=== PATIENT | male | born 1985 | race Caucasian/White ===

== ENCOUNTER 2021-10-25 11:16 | Observation (INO) | payer OTHER ==
[2021-10-25 11:23] VITALS: TEMP 98
[2021-10-25] MEDS ORDERED: SODIUM CHLORIDE 0.9% 500 ML 500 ML IV STA (11:39)
[2021-10-25] MEDS ORDERED: NITROGLYCERIN SL TABS 0.4 MG TAB SUBLINGUAL STA ×2 (11:39)
[2021-10-25] MEDS ORDERED: ASPIRIN 81 MG PO STA (11:39)
--- NOTE | 2021-10-25 11:43 | ED ---
General Adult HPI - General Chief complaint: Chest Pain Stated complaint: Chest Pain Time Seen by Provider: 10/25/21 11:20 Source: patient, RN notes reviewed, old records reviewed Mode of arrival: ambulatory Limitations: no limitations - History of Present Illness Initial comments: This is a 36-year-old male who presents to the emergency department complaining of chest pain that started last evening. Patient states constant since last evening. Patient denies any radiation of the pain. Patient states he is somewhat short of breath. Patient states this is been an ongoing thing for the last few weeks where he is getting chest pain. Patient is has a history of high blood pressure was taken hydrochlorothiazide he states he hasn't missed any dose s. Patient denies any diaphoretic episodes. Patient denies any nausea. Patient denies abdominal pain patient denies nausea vomiting diarrhea. Patient denies any lightheadedness dizziness. Patient was told he needed to be admitted to another hospital but he left AGAINST MEDICAL ADVICE. - Related Data Home Medications Medication Instructions Recorded Confirmed Ibuprofen [Motrin] 800 mg PO Q8H PRN 10/25/21 10/25/21 Omeprazole [PriLOSEC] 10 mg PO DAILY 10/25/21 10/25/21 Sennosides [Senna] 17.2 mg PO HS PRN 10/25/21 10/25/21 hydroCHLOROthiazide [Hydrodiuril] 25 mg PO DAILY 10/25/21 10/25/21 Allergies Allergy/AdvReac Type Severity Reaction Status Date / Time No Known Allergies Allergy Verified 10/25/21 12:04 Review of Systems ROS Statement: Those systems with pertinent positive or pertinent negative responses have been documented in the HPI. ROS Other: All systems not noted in ROS Statement are negative. Past Medical History Past Medical History: Hypertension Additional Past Medical History / Comment(s): colon mass History of Any Multi-Drug Resistant Organisms: None Reported Past Surgical History: No Surgical Hx Reported Additional Past Surgical History / Comment(s): EGD Past Psychological History: Anxiety Smoking Status: Current every day smoker Past Alcohol Use History: Occasional, Rare Past Drug Use History: None Reported General Exam - General Exam Comments Initial Comments: GENERAL: Patient is well-developed and well-nourished. Patient is nontoxic and well- hydrated and is in mild distress. ENT: Neck is soft and supple. No significant lymphadenopathy is noted. Oropharynx is clear. Moist mucous membranes. Neck has full range of motion without eliciting any pain. EYES: The sclera were anicteric and conjunctiva were pink and moist. Extraocular movements were intact and pupils were equal round and reactive to light. Eyelids were unremarkable. PULMONARY: Unlabored respirations. Good breath sounds bilaterally. No audible rales rhonchi or wheezing was noted. CARDIOVASCULAR: There is a regular rate and rhythm without any murmurs gallops or rubs. ABDOMEN: Soft and nontender with normal bowel sounds. SKIN: Skin is clear with no lesions or rashes and otherwise unremarkable. NEUROLOGIC: Patient is alert and oriented x3. Cranial nerves II through XII are grossly intact. Motor and sensory are also intact. Normal speech, volume and content. Symmetrical smile. MUSCULOSKELETAL: Normal extremities with adequate strength and full range of motion. No lower extremity swelling or edema. No calf tenderness. LYMPHATICS: No significant lymphadenopathy is noted PSYCHIATRIC: Normal psychiatric evaluation. Limitations: no limitations Course Vital Signs 10/25/21 10/25/21 11:19 12:02 Temperature 98 F Pulse Rate 81 84 Respiratory 18 18 Rate Blood Pressure 189/129 158/104 O2 Sat by Pulse 98 96 Oximetry Medical Decision Making - Medical Decision Making EKG shows sinus rhythm at 87 bpm CO interval 159 QRS is 94 QT interval 365 QTC is 49. Patient's EKG shows no ST segment elevation or depression. Patient's blood pressure came down nitroglycerin. Patient did receive an aspirin as well. I spoke with some physicians he agreed to admit the patient admitted the patient wrote admitting orders. Chest x-ray shows no acute abnormality. - Lab Data Result diagrams: 10/25/21 11:50 10/25/21 11:50 Lab Results 10/25/21 10/25/21 10/25/21 Range/Units 11:50 11:50 11:50 WBC 11.6 H (3.8-10.6) k/uL RBC 5.59 (4.30-5.90) m/uL Hgb 16.3 (13.0-17.5) gm/dL Hct 48.6 (39.0-53.0) % MCV 86.9 (80.0-100.0) fL MCH 29.1 (25.0-35.0) pg MCHC 33.5 (31.0-37.0) g/dL RDW 12.3 (11.5-15.5) % Plt Count 249 (150-450) k/uL MPV 7.6 Neutrophils % 72 % Lymphocytes % 18 % Monocytes % 5 % Eosinophils % 2 % Basophils % 1 % Neutrophils # 8.3 H (1.3-7.7) k/uL Lymphocytes # 2.1 (1.0-4.8) k/uL Monocytes # 0.6 (0-1.0) k/uL Eosinophils # 0.2 (0-0.7) k/uL Basophils # 0.1 (0-0.2) k/uL PT 9.6 (9.0-12.0) sec INR 0.9 (<1.2) APTT 23.3 (22.0-30.0) sec Sodium 139 (137-145) mmol/L Potassium 3.6 (3.5-5.1) mmol/L Chloride 100 (98-107) mmol/L Carbon Dioxide 27 (22-30) mmol/L Anion Gap 12 mmol/L BUN 13 (9-20) mg/dL Creatinine 0.81 (0.66-1.25) mg/dL Est GFR (CKD-EPI)AfAm >90 (>60 ml/min/1.73 sqM) Est GFR (CKD-EPI)NonAf >90 (>60 ml/min/1.73 sqM) Glucose 110 H (74-99) mg/dL Calcium 9.9 (8.4-10.2) mg/dL Magnesium 1.9 (1.6-2.3) mg/dL Total Bilirubin 0.5 (0.2-1.3) mg/dL AST 30 (17-59) U/L ALT 37 (4-49) U/L Alkaline Phosphatase 76 (38-126) U/L Troponin I (0.000-0.034) ng/mL Total Protein 7.8 (6.3-8.2) g/dL Albumin 4.7 (3.5-5.0) g/dL 10/25/21 Range/Units 11:50 WBC (3.8-10.6) k/uL RBC (4.30-5.90) m/uL Hgb (13.0-17.5) gm/dL Hct (39.0-53.0) % MCV (80.0-100.0) fL MCH (25.0-35.0) pg MCHC (31.0-37.0) g/dL RDW (11.5-15.5) % Plt Count (150-450) k/uL MPV Neutrophils % % Lymphocytes % % Monocytes % % Eosinophils % % Basophils % % Neutrophils # (1.3-7.7) k/uL Lymphocytes # (1.0-4.8) k/uL Monocytes # (0-1.0) k/uL Eosinophils # (0-0.7) k/uL Basophils # (0-0.2) k/uL PT (9.0-12.0) sec INR (<1.2) APTT (22.0-30.0) sec Sodium (137-145) mmol/L Potassium (3.5-5.1) mmol/L Chloride (98-107) mmol/L Carbon Dioxide (22-30) mmol/L Anion Gap mmol/L BUN (9-20) mg/dL Creatinine (0.66-1.25) mg/dL Est GFR (CKD-EPI)AfAm (>60 ml/min/1.73 sqM) Est GFR (CKD-EPI)NonAf (>60 ml/min/1.73 sqM) Glucose (74-99) mg/dL Calcium (8.4-10.2) mg/dL Magnesium (1.6-2.3) mg/dL Total Bilirubin (0.2-1.3) mg/dL AST (17-59) U/L ALT (4-49) U/L Alkaline Phosphatase (38-126) U/L Troponin I <0.012 (0.000-0.034) ng/mL Total Protein (6.3-8.2) g/dL Albumin (3.5-5.0) g/dL Disposition Clinical Impression: Hypertensive urgency, Chest pain Disposition: ADMITTED IP TO THIS [facility] Referrals: Nonstaff,Physician [Primary Care Provider] - 1-2 days Time of Disposition: 12:43
[2021-10-25 11:58] LABS: Basophils # (A) 0.1 k/uL (0-0.2); Basophils % (A) 1 %; Eosinophils # (A) 0.2 k/uL (0-0.7); Eosinophils % (A) 2 %; HCT 48.6 % (39.0-53.0); HGB 16.3 gm/dL (13.0-17.5); Lymphocytes # (A) 2.1 k/uL (1.0-4.8); Lymphocytes % (A) 18 %; MCH 29.1 pg (25.0-35.0); MCHC 33.5 g/dL (31.0-37.0); MCV 86.9 fL (80.0-100.0); Mean Platelet Volume 7.6; Monocytes # (A) 0.6 k/uL (0-1.0); Monocytes % (A) 5 %; Neutrophils # (A) 8.3 k/uL (1.3-7.7); Neutrophils % (A) 72 %; Platelet Count 249 k/uL (150-450); RBC 5.59 m/uL (4.30-5.90); RDW 12.3 % (11.5-15.5); WBC 11.6 k/uL (3.8-10.6)
--- NOTE | 2021-10-25 12:01 | XR ---
EXAMINATION TYPE: XR chest 2V DATE OF EXAM: 10/25/2021 COMPARISON: None INDICATION: Chest pain, tightness TECHNIQUE: Frontal and lateral views of the chest are obtained. FINDINGS: The heart size is normal. The pulmonary vasculature is normal. The lungs are clear. IMPRESSION: 1. No acute pulmonary process.
[2021-10-25 12:07] LABS: ALT 37 U/L (4-49); AST 30 U/L (17-59); African American GFR (CKD) >90 (>60 ml/min/1.73 sqM); Albumin 4.7 g/dL (3.5-5.0); Alkaline Phosphatase 76 U/L (38-126); Anion Gap 12 mmol/L; Blood Urea Nitrogen 13 mg/dL (9-20); Calcium 9.9 mg/dL (8.4-10.2); Carbon Dioxide 27 mmol/L (22-30); Chloride 100 mmol/L (98-107); Glucose 110 mg/dL (74-99); Magnesium 1.9 mg/dL (1.6-2.3); Non-African American GFR(CKD) >90 (>60 ml/min/1.73 sqM); Potassium 3.6 mmol/L (3.5-5.1); Sodium 139 mmol/L (137-145); Total Bilirubin 0.5 mg/dL (0.2-1.3); Total Protein 7.8 g/dL (6.3-8.2)
[2021-10-25 12:30] LABS: INR 0.9 (<1.2); Partial Thromboplastin Time 23.3 sec (22.0-30.0); Prothrombin Time 9.6 sec (9.0-12.0)
[2021-10-25] MEDS ORDERED: NITROGLYCERIN SL TABS 0.4 MG TAB SUBLINGUAL PRN (12:46)
[2021-10-25] MEDS: NITROGLYCERIN OINT 1 INCH/GM PACKET TOPICAL SCH ×2 (14:28→23:47)
--- NOTE | 2021-10-25 15:36 | P.HPIM ---
History of Present Illness Chief Complaint: Chest pain Patient is a 36 [place] with a past medical history of essential hypertension on hydrochlorothiazide the presents of a hospital complain of chest pain. This has been happening over. Of 2-3 weeks and progressively getting worse. It is intermittent in nature and currently rates it a 5 out of 10. He does state when it intensifies it goes up to a 10 out of 10. It is located the left substernal area and does radiate to his left arm and jaw at times. He denies any use of illicit drugs including marijuana cocaine or heroin however in the past has used it which has been many years. He denies any weight loss, fever or chills. Patient's vital signs are stable however hypertensive in the emergency department. EKG reviewed. Past Medical History Past Medical History: Hypertension Additional Past Medical History / Comment(s): colon mass History of Any Multi-Drug Resistant Organisms: None Reported Past Surgical History: No Surgical Hx Reported Additional Past Surgical History / Comment(s): EGD Past Psychological History: Anxiety Smoking Status: Current every day smoker Past Alcohol Use History: Occasional, Rare Past Drug Use History: None Reported Medications and Allergies Home Medications Medication Instructions Recorded Confirmed Type Ibuprofen [Motrin] 800 mg PO Q8H PRN 10/25/21 10/25/21 History Omeprazole [PriLOSEC] 10 mg PO DAILY 10/25/21 10/25/21 History Sennosides [Senna] 17.2 mg PO HS PRN 10/25/21 10/25/21 History hydroCHLOROthiazide [Hydrodiuril] 25 mg PO DAILY 10/25/21 10/25/21 History Allergies Allergy/AdvReac Type Severity Reaction Status Date / Time No Known Allergies Allergy Verified 10/25/21 12:04 Physical Exam Vitals: Vital Signs Temp Pulse Resp BP Pulse Ox 10/25/21 14:13 80 16 169/117 97 10/25/21 12:56 81 16 157/114 97 10/25/21 12:02 84 18 158/104 96 10/25/21 11:19 98 F 81 18 189/129 98 Intake and Output 10/25/21 10/25/21 10/25/21 06:59 14:59 22:59 Other: Weight 108.862 kg Gen. patient is awake alert oriented 3 Respiratory no wheezing or rhonchi appreciated Cardiac normal S1/S2 no murmurs or rubs Abdomen soft and nontender Neuro no focal deficits noted Extremities no pitting edema noted Results CBC & Chem 7: 10/25/21 11:50 10/25/21 11:50 Labs: Abnormal Lab Results - Last 24 Hours (Table) 10/25/21 10/25/21 Range/Units 11:50 11:50 WBC 11.6 H (3.8-10.6) k/uL Neutrophils # 8.3 H (1.3-7.7) k/uL Glucose 110 H (74-99) mg/dL Assessment and Plan Plan: Assessment: #1 chest pain rule out ACS versus [place] skeletal #2 hypertensive urgency Plan: -Admitted to medicine for close monitoring -Aspiration/fall precaution -Trend cardiac troponin -2-D echocardiogram to evaluate for any structural heart disease/hypokinesis -Heart score less than 3 -Cardiology consult from the emergency department -We'll start the patient on lisinopril 10 mg daily HTZ -Risk stratified patient with hemoglobin A1c and lipid panel, TSH -Due to prophylaxis Lovenox
[2021-10-25] MEDS ORDERED: LISINOPRIL-HCTZ 10-12.5 MG 1 EACH TAB PO SCH (15:45)
[2021-10-25] MEDS ORDERED: ACETAMINOPHEN TAB 325 MG TAB PO PRN (16:32)
[2021-10-25 22:18] VITALS: RESP 18
[2021-10-26] MEDS: NITROGLYCERIN OINT 1 INCH/GM PACKET TOPICAL SCH (06:04)
[2021-10-26] MEDS ORDERED: ENOXAPARIN 40 MG/0.4 ML SYRINGE SQ SCH (09:00)
[2021-10-26] MEDS ORDERED: ASPIRIN 325 MG TAB PO SCH (09:00)
[2021-10-26 09:12] LABS: Chol/HDL Ratio 6.94 Ratio; LDL Cholesterol,Calculated 121.8 mg/dL (0.0-131.0)
[2021-10-26 09:13] LABS: Chol/HDL Ratio 6.46 Ratio; LDL Cholesterol,Calculated 133.4 mg/dL (0.0-131.0)
--- NOTE | 2021-10-26 09:58 | P.CRDCN ---
History of Present Illness Consult date: 10/26/21 History of present illness: HISTORY OF PRESENT ILLNESS: This is a 36 year old male with a past medical history significant for hypertension and nicotine dependence. Patient does not follow with a cradle placer. We have been asked to see the patient in consultation for chest pain and elevated blood pressure. Patient examined at the bedside in the emergency room. Patient states he is currently living in a fpc house and just gotten out of federal custodial in August 2021. The patient states he has a history of high blood pressure and is prescribed hydrochlorothiazide on an outpatient basis. The patient states he was seen last week at [facility] for high blood pressure and his dose of hydrochlorothiazide was increased at that time. Patient reports his blood pressures have continued to be elevated. Patient reports having chest pain for the past 3 weeks. He states the pain has been intermittent and is in the middle of his chest. He states he feels like his heart is pounding and jumping out of his chest. He does report some nausea but no vomiting. He states the pain is not worse with movement or with deep inspiration. The patient also reports she has been having some vision issues recently and feels at times he is going to black out. Patient reports she is a current smoker and smokes approximately one pack every few days. EKG reveals sinus mechanism with no signs of acute ischemia Chest xray negative for acute process Laboratory data: WBC 11.6. Hemoglobin 16.3. Platelet count 249. Sodium 139. Potassium 3.6. BUN 13. Creatinine 0.81. Troponin negative 3. Current home cardiac medications include hydrochlorothiazide 25 mg daily REVIEW OF SYSTEMS: At the time of my exam: CONSTITUTIONAL: Denies fever or chills. HEENT: Denies blurred vision, vision changes, or eye pain. Denies hemoptysis CARDIOVASCULAR: Denies chest pain. Denies orthopnea. Denies PND. Denies palpitations RESPIRATORY: Denies shortness of breath. GASTROINTESTINAL: Denies abdominal pain. Denies nausea or vomiting. HEMATOLOGIC: Denies bleeding disorders. GENITOURINARY: Denies any blood in urine. SKIN: Denies pruitis. Denies rash. PHYSICAL EXAM: VITAL SIGNS: Reviewed. GENERAL: Well-developed in no acute distress. HEENT: Head is normocephalic. Pupils are equal, round. Sclerae anicteric. Mucous membranes of the mouth are moist. Neck supple. No JVD or thyromegaly LUNGS: Respirations even and unlabored. Lungs essentially clear to auscultation bilaterally. HEART: Regular rate and rhythm. S1 and S2 heard. ABDOMEN: Soft. Nondistended. Nontender. EXTREMITIES: Normal range of motion. No clubbing or cyanosis. Peripheral pulses intact. No lower extremity edema NEUROLOGIC: Awake and alert. Oriented x 3. ASSESSMENT: Chest pain, atypical, troponin negative 3 Hypertension, uncontrolled on admission Nicotine dependence PLAN: An acute coronary event has been ruled out Lisinopril has been added per internal medicine with improvement in blood pressures Obtain 2D echo to assess cardiac structure and function Patient to undergo stress echo today Encourage smoking cessation Further recommendations pending patient course Nurse practitioner note has been reviewed by physician. Signing provider agrees with the documented findings, assessment, and plan of care. Past Medical History Past Medical History: Hypertension Additional Past Medical History / Comment(s): colon mass History of Any Multi-Drug Resistant Organisms: None Reported Past Surgical History: No Surgical Hx Reported Additional Past Surgical History / Comment(s): EGD Past Psychological History: Anxiety Smoking Status: Current every day smoker Past Alcohol Use History: Occasional, Rare Past Drug Use History: None Reported Medications and Allergies Home Medications Medication Instructions Recorded Confirmed Type Ibuprofen [Motrin] 800 mg PO Q8H PRN 10/25/21 10/25/21 History Omeprazole [PriLOSEC] 10 mg PO DAILY 10/25/21 10/25/21 History Sennosides [Senna] 17.2 mg PO HS PRN 10/25/21 10/25/21 History hydroCHLOROthiazide [Hydrodiuril] 25 mg PO DAILY 10/25/21 10/25/21 History Allergies Allergy/AdvReac Type Severity Reaction Status Date / Time No Known Allergies Allergy Verified 10/25/21 12:04 Physical Exam Vitals: Vital Signs Temp Pulse Resp BP Pulse Ox 10/26/21 06:05 68 18 95/71 97 10/26/21 00:57 71 18 131/70 97 10/25/21 23:43 65 18 139/74 94 L 10/25/21 22:17 72 18 131/71 97 10/25/21 20:00 70 16 124/75 97 10/25/21 19:19 78 18 114/78 98 02/13/22 18:06 88 18 160/102 98 10/25/21 16:26 80 16 139/103 98 10/25/21 14:13 80 16 169/117 97 10/25/21 12:56 81 16 157/114 97 10/25/21 12:02 84 18 158/104 96 10/25/21 11:19 98 F 81 18 189/129 98 Results 10/25/21 11:50 10/25/21 11:50 Cardiac Enzymes 10/25/21 10/25/21 10/25/21 Range/Units 11:50 11:50 15:24 AST 30 (17-59) U/L Troponin I <0.012 <0.012 (0.000-0.034) ng/mL 10/25/21 Range/Units 19:15 AST (17-59) U/L Troponin I <0.012 (0.000-0.034) ng/mL Coagulation 10/25/21 Range/Units 11:50 PT 9.6 (9.0-12.0) sec APTT 23.3 (22.0-30.0) sec CBC 10/25/21 Range/Units 11:50 WBC 11.6 H (3.8-10.6) k/uL RBC 5.59 (4.30-5.90) m/uL Hgb 16.3 (13.0-17.5) gm/dL Hct 48.6 (39.0-53.0) % Plt Count 249 (150-450) k/uL Comprehensive Metabolic Panel 10/25/21 Range/Units 11:50 Sodium 139 (137-145) mmol/L Potassium 3.6 (3.5-5.1) mmol/L Chloride 100 (98-107) mmol/L Carbon Dioxide 27 (22-30) mmol/L BUN 13 (9-20) mg/dL Creatinine 0.81 (0.66-1.25) mg/dL Glucose 110 H (74-99) mg/dL Calcium 9.9 (8.4-10.2) mg/dL AST 30 (17-59) U/L ALT 37 (4-49) U/L Alkaline Phosphatase 76 (38-126) U/L Total Protein 7.8 (6.3-8.2) g/dL Albumin 4.7 (3.5-5.0) g/dL Current Medications Generic Name Dose Route Start Last Admin Trade Name Freq PRN Reason Stop Dose Admin Acetaminophen 650 mg 10/25/21 16:32 10/25/21 16:38 Acetaminophen Tab 325 Mg Tab PO 650 mg Q6HR PRN Administration Fever and/ or MILD Pain Aspirin 325 mg 10/26/21 09:00 Aspirin 325 Mg Tab PO DAILY [facility] Enoxaparin Sodium 40 mg 10/26/21 09:00 Enoxaparin 40 Mg/0.4 Ml Syringe SQ DAILY [facility] Lisinopril/HCTZ 1 each 10/25/21 15:45 10/25/21 16:26 Lisinopril-Hctz 10-12.5 Mg 1 Each Tab PO 1 each DAILY [facility] Administration Nitroglycerin 0.4 mg 10/25/21 12:46 Nitroglycerin Sl Tabs 0.4 Mg Tab SUBLINGUAL Q5M PRN Chest Pain Nitroglycerin 1 inch 10/25/21 18:00 10/26/21 06:04 Nitroglycerin Oint 1 Inch/Gm Packet TOPICAL 1 inch Q6HR ANEUDY Administration 10/25/21 11:50 10/25/21 11:50
--- NOTE | 2021-10-26 11:42 | P.PN ---
<Romario Tena - Last Filed: 10/26/21 11:26> Subjective Progress Note Date: 10/26/21 Hospital course: Patient is a very pleasant 36-year-old male with a past medical history of hypertension and GERD. He presented to the emergency department for reports that he has been experiencing chest pain intermittently off and on over the past month accompanied by "pounding heart" and shortness of breath. Patient reports pain to left anterior chest radiating into his neck and left shoulder and beneath his axillary region. Patient reports this pain comes on with rest and with exertion and does not seem to have any similar factors upon presentation. Patient does report this pain is accompanied by significant hypertension and reports his blood pressure at home has been as high as 230/140. Upon initial presentation to the emergency department patient was significantly hypertensive with blood pressure 189/129, but this is currently controlled at 110/76. Lipid profile elevated with total triglycerides 264, total cholesterol 204, and VLDL 52.8. Hemoglobin A1c normal findings at 5.8%. Troponins trended 3 all negative resulting at < 0.012. EKG showing normal sinus rhythm at 87 bpm with no noted T wave or ST abnormality showing no signs concerning for acute ischemia. Chest x-ray was negative for acute cardiopulmonary process. Patient currently admitted under the services of consultation to cardiology. Physical examination: Patient seen and fully evaluated at the bedside this morning. He was resting comfortably in bed. He reports currently having complete resolution of chest pain he was previously experiencing. His blood pressure has significantly improved. Patient denies having any headache, lightheadedness, dizziness, chest pain, palpitations, shortness of breath, nausea, or experiencing any numbness/dealing/weakness in his extremities at this time. Awaiting echocardiogram to be completed and cardiology planning to take patient for stress echo later this morning. Vital signs reviewed and stable. General: Nontoxic, no distress and appears stated age. Derm: Skin warm and dry, normal coloration for ethnicity. Head: Atraumatic, normocephalic and symmetric. Eyes: EOMs intact, no lid lag, and anicteric sclera Mouth: no lip lesions, mucus membranes moist Cardiovascular: regular rate and rhythm with normal S1S2, no murmur, positive posterior tibial pulses bilaterally, and cap refill < 2 seconds. Lungs: Respirations even, regular, and unlabored on room air. Lungs CTA bilaterally, no rhonchi, no rales, no wheezing, and no accessory muscle usage. Abdominal: soft, nontender to palpation, no guarding, no appreciable organomegaly Ext: ROM intact. No gross muscle atrophy, no edema, no contractures Neuro: Speech clear, face symmetrical and CN II-XII grossly intact with no noted focal neuro deficits Psych: Alert and oriented to person, place, time, and situation. Appropriate and pleasant affect. Assessment and Plan of Care: Atypical Chest Pain, rule out ACS -Cardiology following, plans to take patient for cardiac stress test later this morning. -Telemetry monitoring -Troponins negative, EKG and negative for ischemia -Cardiac diet -Continuation of daily aspirin and lisinopril -Lipid profile revealing elevated total cholesterol of 204, triglycerides 264, and VLDL of 52.8. Patient started on atorvastatin 40 mg daily. -Echocardiogram pending results. Hypertensive urgency -Monitor vital signs closely and continue daily medication regimen with l isinopril/hydrochlorothiazide. GERD -Continue daily medication regimen with omeprazole. CODE STATUS: Full code DVT prophylaxis: Lovenox Discussed with: Patient and RN Anticipated discharge date: Possibly Later today pending results of stress test. Anticipated discharge place: Home A total of 40 minutes was spent on the care of this complex patient more than 50% of the time was spent in counseling and care coordination. Objective - Vital Signs Vital signs: Vital Signs Temp 98 F 10/25/21 11:19 Pulse 85 10/26/21 09:32 Resp 18 10/26/21 09:32 BP 110/76 10/26/21 09:32 Pulse Ox 98 10/26/21 09:32 Intake & Output 10/25/21 10/26/21 10/26/21 18:59 06:59 18:59 Weight 108.862 kg - Labs CBC & Chem 7: 10/25/21 11:50 10/25/21 11:50 Labs: Abnormal Lab Results - Last 24 Hours (Table) 10/25/21 10/25/21 10/25/21 Range/Units 11:50 11:50 Unknown WBC 11.6 H (3.8-10.6) k/uL Neutrophils # 8.3 H (1.3-7.7) k/uL Glucose 110 H (74-99) mg/dL Triglycerides 250.00 H (0.00-149.00) mg/dL Cholesterol 217.00 H (0.00-200.00) mg/dL LDL Cholesterol, Calc 133.4 H (0.0-131.0) mg/dL VLDL Cholesterol, Calc 50.00 H (5.00-40.00) mg/dL HDL Cholesterol 33.60 L (40.00-60.00) mg/dL 10/26/21 Range/Units 06:02 WBC (3.8-10.6) k/uL Neutrophils # (1.3-7.7) k/uL Glucose (74-99) mg/dL Triglycerides 264.00 H (0.00-149.00) mg/dL Cholesterol 204.00 H (0.00-200.00) mg/dL LDL Cholesterol, Calc (0.0-131.0) mg/dL VLDL Cholesterol, Calc 52.80 H (5.00-40.00) mg/dL HDL Cholesterol 29.40 L (40.00-60.00) mg/dL <Barbie Scott - Last Filed: 10/26/21 18:26> Subjective Romario Tena NP rendered care for this patient independently, reviewed the findings and plan as documented in the note above. I did not physically speak with or examine the patient on this date. Objective - Vital Signs Vital signs: Vital Signs Temp 98 F 10/25/21 11:19 Pulse 80 10/26/21 15:03 Resp 18 10/26/21 15:03 BP 136/78 10/26/21 15:03 Pulse Ox 100 10/26/21 15:03 Intake & Output 10/25/21 10/26/21 10/26/21 18:59 06:59 18:59 Weight 108.862 kg 108.86 kg - Labs CBC & Chem 7: 10/25/21 11:50 10/25/21 11:50 Labs: Abnormal Lab Results - Last 24 Hours (Table) 10/25/21 10/26/21 Range/Units Unknown 06:02 Triglycerides 250.00 H 264.00 H (0.00-149.00) mg/dL Cholesterol 217.00 H 204.00 H (0.00-200.00) mg/dL LDL Cholesterol, Calc 133.4 H (0.0-131.0) mg/dL VLDL Cholesterol, Calc 50.00 H 52.80 H (5.00-40.00) mg/dL HDL Cholesterol 33.60 L 29.40 L (40.00-60.00) mg/dL
[2021-10-26] MEDS ORDERED: ATORVASTATIN 40 MG TAB PO SCH (11:45)
--- NOTE | 2021-10-26 12:25 | ECHOF ---
Referral Reason: MEASUREMENTS -------- HEIGHT: 180.3 cm WEIGHT: 108.9 kg BP: IVSd: 1.3 cm (0.6 - 1.1) LVIDd: 4.0 cm (3.9 - 5.3) LVPWd: 1.2 cm (0.6 - 1.1) IVSs: 1.7 cm LVIDs: 2.2 cm LVPWs: 1.9 cm Ao Diam: 3.4 cm (2.0 - 3.7) AV Cusp: 1.6 cm (1.5 - 2.6) LA Diam: 3.6 cm (2.7 - 3.8) MV EXCURSION: 16.898 mm (> 18.000) MV EF SLOPE: 97 mm/s (70 - 150) EPSS: 0.5 cm MV E Jayy: 0.62 m/s MV DecT: 221 ms MV A Jayy: 0.66 m/s MV E/A Ratio: 0.94 RAP: 5.00 mmHg RVSP: 10.42 mmHg FINDINGS -------- Sinus rhythm. This was a technically difficult study with suboptimal views. The left ventricular size is normal. There is mild concentric left ventricular hypertrophy. Overa ll left ventricular systolic function is normal with, an EF between 55 - 60 %. The right ventricle is normal in size. The left atrial size is normal. The right atrium was not well visualized. Lumason used The aortic valve is trileaflet, and appears structurally normal. No aortic stenosis or regurgitation. The mitral valve is normal. There is trace mitral regurgitation. The tricuspid valve appears structurally normal. Trace tricuspid regurgitation present. Right dedra tricular systolic pressure is normal at < 35 mmHg. The pulmonic valve was not well visualized. The aortic root size is normal. IVC Not well visulized. There is no pericardial effusion. CONCLUSIONS -------- 1. This was a technically difficult study with suboptimal views. 2. There is mild concentric left ventricular hypertrophy. 3. Overall left ventricular systolic function is normal with, an EF between 55 - 60 %. 4. The aortic valve is trileaflet, and appears structurally normal. No aortic stenosis or regurgitati on. 5. There is trace mitral regurgitation. 6. Trace tricuspid regurgitation present. 7. There is no pericardial effusion. LICENSED JOURNEYMAN ELECTRICIAN: Kenzie Campa ELLI
--- NOTE | 2021-10-26 14:22 | P.DS ---
<Romario Tena - Last Filed: 10/26/21 14:17> Providers Expected date of discharge: 10/26/21 Hospital Course: Discharge Diagnosis: Atypical Chest Pain, acute coronary event ruled out Hyperlipidemia with hypertriglyceridemia, patient started on atorvastatin 40 mg daily and encouraged to make lifestyle modifications and follow heart healthy diet. Hypertensive urgency, hydrochlorothiazide discontinued patient started on combination medication of lisinopril/hydrochlorothiazide and blood pressure has been stabilized. GERD, continue Protonix 40 mg daily. Hospital Course: Patient is a very pleasant 36-year-old male with a past medical history of hypertension and GERD. He presented to the emergency department for reports that he has been experiencing chest pain intermittently off and on over the past month accompanied by "pounding heart" and shortness of breath. Patient reports pain to left anterior chest radiating into his neck and left shoulder and beneath his axillary region. Patient reports this pain comes on with rest and with exertion and does not seem to have any similar factors upon presentation. Patient does report this pain is accompanied by significant hypertension and reports his blood pressure at home has been as high as 230/140. Upon initial presentation to the emergency department patient was significantly hypertensive with blood pressure 189/129, but this is currently controlled at 110/76. Lipid profile elevated with total triglycerides 264, total cholesterol 204, and VLDL 52.8. Hemoglobin A1c normal findings at 5.8%. Troponins trended 3 all negative resulting at < 0.012. EKG showing normal sinus rhythm at 87 bpm with no noted T wave or ST abnormality showing no signs concerning for acute ischemia. Chest x-ray was negative for acute cardiopulmonary process. Patient currently admitted under the services of consultation to cardiology. Echocardiogram was completed revealing an EF between 55 and 60% with no significant valvular abnormalities. Patient underwent a cardiac stress test and per cardiology was negative and patient is cleared from cardiology standpoint for discharge home. Patient's hydrochlorothiazide was discontinued and patient was started on losartan/hydrochlorothiazide combination pill. Since beginning new medication, blood pressure has been stable and patient has had no further episodes of hypertension. In addition to blood pressure management, patient was also started on atorvastatin secondary to elevated cholesterol and triglycerides. Patient encouraged to make lifestyle modifications and follow heart healthy diet. Patient is medically stable for discharge home and to follow up outpatient with PCP in 2 days and with cardiology in 1 week. A total of 45 minutes of time were spent preparing this complex discharge summ tiana. Patient Condition at Discharge: Stable Plan - Discharge Summary New Discharge Prescriptions: New Atorvastatin [Lipitor] 40 mg PO DAILY 30 Days #30 tab Pantoprazole [Protonix] 40 mg PO DAILY 30 Days #30 tab Lisinopril-Hctz 10-12.5 mg [Zestoretic 10-12.5] 1 each PO DAILY 30 Days #30 tab Continue Ibuprofen [Motrin] 800 mg PO Q8H PRN PRN Reason: Pain Sennosides [Senna] 17.2 mg PO HS PRN PRN Reason: Constipation Discontinued Omeprazole [PriLOSEC] 10 mg PO DAILY hydroCHLOROthiazide [Hydrodiuril] 25 mg PO DAILY Discharge Medication List Ibuprofen [Motrin] 800 mg PO Q8H PRN 10/25/21 [History] Sennosides [Senna] 17.2 mg PO HS PRN 10/25/21 [History] Atorvastatin [Lipitor] 40 mg PO DAILY 30 Days #30 tab 10/26/21 [Rx] Lisinopril-Hctz 10-12.5 mg [Zestoretic 10-12.5] 1 each PO DAILY 30 Days #30 tab 10/26/21 [Rx] Pantoprazole [Protonix] 40 mg PO DAILY 30 Days #30 tab 10/26/21 [Rx] Follow up Appointment(s)/Referral(s): Jose Price MD [STAFF PHYSICIAN] - 1 Week Robert Samuel MD [REFERRING] - 1 Week Activity/Diet/Wound Care/Special Instructions: Activity: As tolerated. Take breaks as needed. Diet: Heart healthy and carb consistent diet. Avoid salts, or foods with hidden salts such as canned or boxed foods and frozen dinners. Extra salt makes your heart work harder and traps the fluid in your body for longer. Special Instructions: Take all of your medications as directed and remember to keep all of your doctor's appointments and follow-up as needed. Thank you for allowing us to participate in your care, it was truly a pleasure having you for our patient!!! Discharge Disposition: HOME SELF-CARE <Barbie Scott - Last Filed: 10/26/21 17:53> Providers Date of admission: 10/25/21 12:47 Attending physician: Corey Nagy MD Consults: 10/25/21 12:46 Consult Physician Urgent Consulting Provider: [facility] Consult Reason/Comments: Chest pain Do you want consulting provider notified?: Yes Primary care physician: Physician Nonstaff Hospital Course: Romario Tena NP rendered care for this patient independently, reviewed the findings and plan as documented in the note above. I did not physically speak with or examine the patient on this date.
[2021-10-26 15:04] VITALS: BP 136/78; PULSE 80
--- NOTE | 2021-10-26 15:10 | EST ---
EXERCISE STRESS INDICATION: perfusion. AGE: 36 SEX: M HT: 5'9" WT: 239 lbs. PROTOCOL: Theodore STAGE: 4 DURATION OF EXERCISE: 9:58 HEART RATE REST: 75 BLOOD PRESSURE REST: 148/78 MAXIMUM HEART RATE ACHIEVED: 166 MAXIMUM BLOOD PRESSURE: 185/83 85% MPHR: 156 100% MPHR: 184 METS: 11.5 INDICATIONS: Chest pain . RESULTS: Baseline rhythm is sinus mechanism. Rate of 75, normal axis and intervals. Normal electrocardiogram. Baseline blood pressure 148/78 mmHg. The patient exercised on Theodore protocol for 9 minutes 58 seconds reaching peak rate of 166 beats per minute, which is equal to 90% maximum predicted heart rate. Peak blood pressure 185/83 mmHg. Electrocardiograph monitoring revealed no evidence of diagnostic ischemic ST deviation. His stress test was terminated secondary to fatigue. There was no chest pain. FINDINGS: Baseline echocardiogram revealed normal wall thickening and motion. At peak exercise, there was normal wall motion augmentation with no hypokinesis or dyskinesis. CONCLUSION: 1. Good exercise tolerance with normal electrocardiograph response to exercise. 2. Normal stress echocardiogram with no evidence of stress-induced ischemia. MMODL / IJN: [id number] /
[2021-10-27] MEDS ORDERED: ASPIRIN 81 MG PO SCH (09:00)
[2021-10-27] MEDS ORDERED: PANTOPRAZOLE 40 MG TABLET PO SCH (09:00)
== END 2021-10-26 15:05 | disposition home or self-care (01) ==
LOC: EC 11:16 → 1SOBS 12:47 → 6NMEDSUR 18:09
PROVIDERS: ADMIT Internal Medicine; ATTEND Internal Medicine
DX: R07.89 Other chest pain (principal); I10 Essential (primary) hypertension; I16.0 Hypertensive urgency; F17.210 Nicotine dependence, cigarettes, uncomplicated; E78.5 Hyperlipidemia, unspecified; E78.00 Pure hypercholesterolemia, unspecified; E78.1 Pure hyperglyceridemia; R06.02 Shortness of breath; R11.0 Nausea; K21.9 Gastro-esophageal reflux disease without esophagitis; Z20.822 Contact with and (suspected) exposure to COVID-19; F41.9 Anxiety disorder, unspecified; K63.9 Disease of intestine, unspecified; Z79.899 Other long term (current) drug therapy; Z71.6 Tobacco abuse counseling; Z71.3 Dietary counseling and surveillance
CPT/HCPCS: 99285; 36415; 93005; 93306; 93351; 80061 ×2; 80053; 84443; 83735; 84484; 85025; 85610; 85730; 83036; 87635; 71046; G0378 ×2; Q9950